=== PATIENT | female | born 1960 | race Caucasian/White ===

== ENCOUNTER → 2023-03-10 | Outpatient (CLI) | payer MEDICARE ==
--- NOTE | 2023-03-10 13:37 | XR ---
EXAMINATION TYPE: XR chest 2V DATE OF EXAM: 03/10/2023 1:32 PM COMPARISON: None TECHNIQUE: XR chest 2V Frontal and lateral views of the chest. CLINICAL INDICATION:Female, 62 years old with history of Z01.818 PRE SURGICAL; FINDINGS: Lungs/Pleura: There is no evidence of pleural effusion, focal consolidation, or pneumothorax. Pulmonary vascularity: Unremarkable. Heart/mediastinum: Cardiomediastinal silhouette is unremarkable. Musculoskeletal: No acute osseous pathology. IMPRESSION: No acute cardiopulmonary disease/process.
[2023-03-10 21:13] LABS: BUN/Creat Ratio 18.25 Ratio (12.00-20.00); Blood Urea Nitrogen 14.6 mg/dL (9.0-27.0); Calcium 9.5 mg/dL (8.7-10.3); Carbon Dioxide 26.1 mmol/L (21.6-31.8); Chloride 102 mmol/L (96-109); Glucose 60 mg/dL (70-110); Potassium 4.3 mmol/L (3.5-5.5); Sodium 141 mmol/L (135-145)
[2023-03-10 21:32] LABS: Basophils # (A) 0.06 X 10*3/uL (0.00-0.10); Basophils % (A) 0.4 %; Eosinophils % (A) 2.4 %; HCT 42.6 % (37.2-46.3); HGB 12.9 d/dL (12.0-15.0); Lymphocytes # (A) 4.73 X 10*3/uL (0.90-5.00); Lymphocytes % (A) 27.8 %; MCH 28.8 pg (27.0-32.0); MCHC 30.3 d/dL (32.0-37.0); MCV 95.1 FL (80.0-97.0); Mean Platelet Volume 10.3 FL (9.5-12.2); Monocytes % (A) 5.9 %; NRBC Per 100 WBC 0 X 10*3/uL (0.00-0.01); Neutrophils # (A) 10.76 X 10*3/uL (1.80-7.70); Neutrophils % (A) 63.1 %; Platelet Count 297 X 10*3/uL (140-440); RBC 4.48 X 10*6/uL (4.10-5.20); WBC 17.02 X 10*3/uL (4.50-10.00)
== END | disposition home or self-care (01) ==
LOC: LABPAT 12:44
PROVIDERS: ATTEND Orthopaedic Surgery
DX: Z01.812 Encounter for preprocedural laboratory examination (principal); I44.4 Left anterior fascicular block; I45.10 Unspecified right bundle-branch block; R94.31 Abnormal electrocardiogram [ECG] [EKG]
CPT/HCPCS: 71046; 80048; 85025; 93005

== ENCOUNTER 2023-03-15 13:38 | Day surgery (SDC) | payer MEDICARE ==
--- NOTE | 2023-03-14 09:40 | P.HPOR ---
History of Present Illness H&P Date: 03/14/23 Chief Complaint: Left ankle pain The patient is a 62-year-old retired female who presents with left ankle pain after an injury 03/03/2023. She tripped over her dog injuring her ankle. Initially she was seen in emergency room and placed in the splint. She's been nonweightbearing since. She denies previous injury. Review of Systems Negative except as in HPI Past Medical History Past Medical History: Atrial Fibrillation, Diabetes Mellitus, Hyperlipidemia, Hypertension, Musculoskeletal Disorder, Thyroid Disorder Additional Past Medical History / Comment(s): told a-fib approx. 1 yr ago-not sure if still has, has never taken blood thinner for, neuropathy lower extremities, dog knocked her down 03-03-23 & fx. left ankle-wearing splint History of Any Multi-Drug Resistant Organisms: None Reported Past Surgical History: Cholecystectomy, Orthopedic Surgery, Tubal Ligation Additional Past Surgical History / Comment(s): cyst removed right wrist, cyst on buttock that kept getting infected, turned into gangrene-had mult. surgeries to debride Past Anesthesia/Blood Transfusion Reactions: Postoperative Nausea & Vomiting (PONV) Additional Past Anesthesia/Blood Transfusion Reaction / Comment(s): PONV only once Smoking Status: Current every day smoker Medications and Allergies Home Medications Medication Instructions Recorded Confirmed Type Acetaminophen Tab [Tylenol] 650 mg PO Q6H PRN 03/11/23 03/11/23 History Gabapentin [Neurontin] 300 mg PO BID 03/11/23 03/11/23 History Ibuprofen [Motrin] 800 mg PO Q6H PRN 03/11/23 03/11/23 History Levothyroxine Sodium [Synthroid] 88 mcg PO DAILY 03/11/23 03/11/23 History Rosuvastatin [Crestor] 10 mg PO DAILY 03/11/23 03/11/23 History Spironolactone [Aldactone] 12.5 mg PO DAILY 03/11/23 03/11/23 History carvediloL [Coreg] 12.5 mg PO BID 03/11/23 03/11/23 History glipiZIDE [Glucotrol] 5 mg PO AC-BID 03/11/23 03/11/23 History lisinopriL [Zestril] 2.5 mg PO DAILY 03/11/23 03/11/23 History metFORMIN HCL [Glucophage] 500 mg PO BID 03/11/23 03/11/23 History Allergies Allergy/AdvReac Type Severity Reaction Status Date / Time No Known Allergies Allergy Verified 03/11/23 12:03 Physical Examination - Ankle & Foot left Ankle appearance: swelling Tenderness with palpation: posteromedial ankle, lateral ankle Ankle pain worse with weight bearing: Yes Ankle pain relieved by non-weight bearing: Yes Results The patient is a well-developed well-nourished female proximal and 5 foot 7, 220 pounds of endomorphic habitus. HEENT exam is nonfocal, neck supple. She has painless passive motion of the left hip. She is nontender about the left knee and proximal fibula. On the left ankle, she's tender over the lateral ankle over the distal fibula. She has limited motion secondary to pain. No mid or forefoot tenderness noted. She does have stocking paresthesias. - Diagnostic results Ankle/Foot x-ray: image reviewed (3 views of the left ankle obtained the office show a displaced lateral malleolar fracture. There is some comminution. 2-3 mm lateral displacement is noted. A small posterior malleolar fractures noted.) Assessment and Plan Assessment: Displaced left lateral malleolar ankle fracturecomminuted [id number] diabetes Plan: I talked with the patient regarding her condition along with treatment options. At this point I recommend proceeding with surgical intervention. We'll plan to proceed with open reduction and internal fixation of the left distal fibular fracture. Potentially perform as an outpatient procedure. Risks and benefits were discussed at length in layman's terms.
[~2023-03-15 13:38] MED LIST: DEXAMETHASONE SOD PHOSPHATE 4 MG/ML 1 ML VIAL IV ONE; HYDROmorphone 0.5 MG/0.5 ML SYRINGE IVP PRN; LACTATED RINGERS 1,000 ML IV SCH; ONDANSETRON 4 MG/2 ML VIAL IVP ONE
[2023-03-15 14:03] VITALS: RESP 16
[2023-03-15 14:08] LABS: Glucose,Whole Blood 110 mg/dL (70-110)
--- NOTE | 2023-03-15 14:52 | P.ANPRN ---
Procedure Note - Anesthesia - Nerve Block Performed Left Popliteal Single Date of Procedure: 03/15/23 Procedure Start Time: 14:38 Procedure Stop Time: 14:46 Location of Patient: PreOp Indication: Acute Post-Operative Pain, Dx/Pain Location, Requested by Surgeon Sedation Type: Sedate with meaningful contact maintained Preparation: Sterile Prep Position: Supine Catheter: None Needle Types: Pajunk Needle Gauge: 21 Ultrasound used to visualize needle placement: Yes Ultrasound used to observe medication spread: Yes Injectate: 0.5% Ropivacaine (see comment for volume) (20cc + 4mg dexamethasone) Blood Aspirated: No Pain Paresthesia on Injection Noted: No Resistance on Injection: Normal Image Stored and Saved: Yes Events: Uneventful and Well Tolerated
[2023-03-15] MEDS ORDERED: fentaNYL (PF) 50 MCG/ML 2 ML AMP ONE (15:29)
[2023-03-15] MEDS ORDERED: LIDOCAINE 2% INJ 20 MG/ML (2 ML VIAL) ONE (15:29)
[2023-03-15] MEDS ORDERED: MIDAZOLAM 2 MG/2 ML VIAL ONE (15:29)
[2023-03-15] MEDS ORDERED: PROPOFOL 10 MG/ML 20 ML VIAL IV ONE (15:29)
--- NOTE | 2023-03-15 17:03 | P.OP ---
Date of Procedure: 03/15/23 Preoperative Diagnosis: Left displaced lateral malleolar ankle fracture Postoperative Diagnosis: Same Procedure(s) Performed: Open reduction and internal fixation left lateral malleolar ankle fracture Implants: Arthrex 6-hole lateral distal fibular plate Anesthesia: zoe LANGFORD Surgeon: José Miguel Mcarthur Strip Picker #1: Austin Garrison Estimated Blood Loss (ml): 10 Pathology: none sent Condition: stable Disposition: PACU Indications for Procedure: The patient's a 62-year-old female who presents after injuring her left ankle approximately 12 days ago with a closed displaced/comminuted left lateral malleolar ankle fracture. A discussion of the risks and benefits of operative intervention was made with patient. She opted to proceed with surgery. Operative risks to include infection, neurovascular injury, blood clots, possibl e development of nonunion/malunion, possible need for hardware removal were discussed. Informed consent was obtained. Operative Findings: as below Description of Procedure: The patient was brought to the operating room, and after induction of general anesthesia the left lower extremity was prepped and draped in normal fashion. The limb was elevated to facilitate exsanguination. The tourniquet was inflated to 250 mmHg. An 8 cm incision was then made along the posterior lateral subcutaneous border of the left distal fibula. Skin was incised sharply. Subcu tissues were divided bluntly. Electrocautery was used for hemostasis. The superficial nerve branch was gently retracted. The fracture site was identified and cleaned of clot and debris. There was significant comminution involving the lateral cortex of the distal fibula. A 6-hole precontoured plate was then placed as a neutralization plate laterally. It was attached proximally with 3.5 mm cortical screws of the appropriate length. Good purchase obtained. Distally 3.0mm cancellus screws were utilized. Again good purchase was obtained. This is done with the aid of fluoroscopy. Final fluoroscopic views to include an AP, mortise, and lateral view showed adequate reduction of the fracture and mandaeism of fibular length. The ankle mortise appeared to be intact as well as the distal syndesmosis. The wound was irrigated normal saline. Subcutaneous tissues reapproximated interrupted 2-0 Vicryl sutures. Skin was repaired with 3-0 subcuticular Prolene suture. Steri-Strips were applied. A sterile dressing was applied in addition to a bulky splint. The tourniquet was deflated with less than 45 minutes total tourniquet time. Patient was awoken from general anesthesia and transferred to the recovery room in good condition. Blood loss was estimated at 10 mL. No complications were incurred. Sponge and needle counts were correct in the case. Austin ESCOBAR assisted during the major component the case to include positioning, exposure, implantation, and closure.
[2023-03-15 17:04] VITALS: TEMP 97.6
[2023-03-15 17:33] VITALS: PULSE 90
[2023-03-15 18:05] VITALS: BP 136/82
--- NOTE | 2023-03-15 19:52 | FL ---
EXAMINATION TYPE: FL guidance operating room, XR ankle limited LT DATE OF EXAM: 03/15/2023 Comparison: Radiograph 03/10/2023 Clinical History: 62-year-old female ORIF LT ANKLE Findings: Intraoperative fluoroscopy during placement of lateral plate and screw fixation distal fibula. There also appears to be a possible fracture of the posterior malleolus. FLUOROSCOPY Fluoroscopy time of 37 seconds was used during left ankle ORIF. 4 image/s document/s the procedure. Total DAP: 0.7814 Gycm2. Impression: Intraoperative fluoroscopy as above.
== END 2023-03-15 18:07 | disposition home or self-care (01) ==
LOC: OR 13:38
PROVIDERS: ATTEND Orthopaedic Surgery
DX: S82.62XA Displaced fracture of lateral malleolus of left fibula, initial encounter for closed fracture (principal); W54.1XXA Struck by dog, initial encounter; I48.91 Unspecified atrial fibrillation; E78.5 Hyperlipidemia, unspecified; I10 Essential (primary) hypertension; E11.40 Type 2 diabetes mellitus with diabetic neuropathy, unspecified; E07.9 Disorder of thyroid, unspecified; E66.9 Obesity, unspecified; Z68.33 Body mass index [BMI] 33.0-33.9, adult; K21.9 Gastro-esophageal reflux disease without esophagitis; Z98.890 Other specified postprocedural states; F17.200 Nicotine dependence, unspecified, uncomplicated; Z79.890 Hormone replacement therapy; Z79.1 Long term (current) use of non-steroidal anti-inflammatories (NSAID); Z79.899 Other long term (current) drug therapy; Z79.84 Long term (current) use of oral hypoglycemic drugs; G89.18 Other acute postprocedural pain
CPT/HCPCS: 64445; 27792; 73600; J0690

== ENCOUNTER → 2023-05-04 | Outpatient (CLI) | payer MEDICARE ==
[2023-05-04 17:14] LABS: HCT 40.8 % (37.2-46.3); HGB 12.9 d/dL (12.0-15.0); MCH 29.7 pg (27.0-32.0); MCHC 31.6 d/dL (32.0-37.0); Mean Platelet Volume 9.3 FL (9.5-12.2); NRBC Per 100 WBC 0 X 10*3/uL (0.00-0.01); Platelet Count 456 X 10*3/uL (140-440); RBC 4.34 X 10*6/uL (4.10-5.20); RDW 13.6 % (11.5-14.5); WBC 15.32 X 10*3/uL (4.50-10.00)
[2023-05-04 17:20] LABS: BUN/Creat Ratio 18.89 Ratio (12.00-20.00); Calcium 9.3 mg/dL (8.7-10.3); Carbon Dioxide 22.1 mmol/L (21.6-31.8); Chloride 105 mmol/L (96-109); Glucose 73 mg/dL (70-110); Potassium 4.9 mmol/L (3.5-5.5); Sodium 141 mmol/L (135-145)
[2023-05-04 17:50] LABS: Basophils # (M) 0.15 X 10*3/uL (0.00-0.10); Eosinophils # (M) 0.31 X 10*3/uL (0.04-0.35); Monocytes # (M) 0.61 X 10*3/uL (0.20-1.00); Neutrophils % (M) 61 %; Nucleated Red Blood Cells 1 /100 WBCS
== END | disposition home or self-care (01) ==
LOC: LABPAT 12:40
PROVIDERS: ATTEND Orthopaedic Surgery
DX: Z01.812 Encounter for preprocedural laboratory examination (principal)
CPT/HCPCS: 36415; 80048; 85025

== ENCOUNTER 2023-05-06 10:51 | Day surgery (SDC) | payer MEDICARE ==
--- NOTE | 2023-05-05 08:09 | P.HPOR ---
History of Present Illness H&P Date: 05/05/23 Chief Complaint: Left ankle pain The patient is a 63-year-old female who underwent ORIF of a comminuted left lateral lower fracture 03/15/2023 presents with persistent drainage and pain. Upon evaluation she was noted to have evidence of a deep infection despite oral antibiotics. Review of Systems Negative except as per HPI, denies fevers or chills. Past Medical History Past Medical History: Atrial Fibrillation, Diabetes Mellitus, Hyperlipidemia, Hypertension, Musculoskeletal Disorder, Thyroid Disorder Additional Past Medical History / Comment(s): told a-fib approx. 1 yr ago-not sure if still has, has never taken blood thinner for, neuropathy lower extremities, dog knocked her down 03-03-23 & fx. left ankle-wearing splint History of Any Multi-Drug Resistant Organisms: None Reported Past Surgical History: Cholecystectomy, Orthopedic Surgery, Tubal Ligation Additional Past Surgical History / Comment(s): cyst removed right wrist, cyst on buttock that kept getting infected, turned into gangrene-had mult. surgeries to debride Past Anesthesia/Blood Transfusion Reactions: Postoperative Nausea & Vomiting (PONV) Additional Past Anesthesia/Blood Transfusion Reaction / Comment(s): PONV only once Smoking Status: Current every day smoker Medications and Allergies Home Medications Medication Instructions Recorded Confirmed Type Acetaminophen Tab [Tylenol] 650 mg PO Q6H PRN 03/11/23 03/11/23 History Gabapentin [Neurontin] 300 mg PO BID 03/11/23 03/11/23 History Ibuprofen [Motrin] 800 mg PO Q6H PRN 03/11/23 03/11/23 History Levothyroxine Sodium [Synthroid] 88 mcg PO DAILY 03/11/23 03/11/23 History Rosuvastatin [Crestor] 10 mg PO DAILY 03/11/23 03/11/23 History Spironolactone [Aldactone] 12.5 mg PO DAILY 03/11/23 03/11/23 History carvediloL [Coreg] 12.5 mg PO BID 03/11/23 03/15/23 History glipiZIDE [Glucotrol] 5 mg PO AC-BID 03/11/23 03/11/23 History lisinopriL [Zestril] 2.5 mg PO DAILY 03/11/23 03/11/23 History metFORMIN HCL [Glucophage] 500 mg PO BID 03/11/23 03/11/23 History HYDROcodone/APAP 7.5-325MG [[place] 1 tab PO Q6HR PRN #28 tab 03/15/23 Rx 7.5-325] Allergies Allergy/AdvReac Type Severity Reaction Status Date / Time No Known Allergies Allergy Verified 03/15/23 13:53 Physical Examination - Ankle & Foot left Ankle appearance: erythema, previous incision (6 x 6 mm wound mid incision with purulent drainage) ROM: dorsiflexion: 0 degrees ROM: plantarflexion: 30 degrees Strength: dorsiflexion: 5/5 Strength: plantarflexion: 5/5 Strength: inversion: 5/5 Strength: eversion: 5/5 Results The patient is a well-developed were nourished female approximately 5 foot 7, 216 pounds of endomorphic habitus. HEENT exam is nonfocal, neck supple. She has painless passive motion of her left hip and knee. On examination of her left ankle, she has moderate lateral swelling. She's tender over the distal fibula. No medial tenderness is noted. Homans is negative. Her distal neurovascular exam shows stocking paresthesias bilaterally. - Diagnostic results Ankle/Foot x-ray: image reviewed (3 views of the left ankle obtained in the office show a comminuted distal fibular fracture in reasonable alignment. The mortise appears to be intact. There is some backing out of the distal screws in the lateral plate.) Assessment and Plan Assessment: Status post ORIF left comminuted lateral malleolar ankle fracture Deep infection left lateral ankle Diabetes Plan: I talked with the patient and her at length regarding her condition along with treatment options. At this point I recommend proceeding with incision and drainage/irrigation and debridement of left lateral ankle with hardware removal/obtain cultures. Risks and benefits were discussed at length in layman's terms. We will likely admit the patient to hospital, and consult infectious disease for antibiotic treatment.
[~2023-05-06 10:51] MED LIST changes: -LACTATED RINGERS 1,000 ML IV SCH; +MIDAZOLAM 2 MG/2 ML VIAL IV PRN; +SCOPOLAMINE 1 MG/72 HR PATCH TRANSDERM ONE
[2023-05-06] MEDS: LACTATED RINGERS 1,000 ML IV SCH (11:34)
[2023-05-06 11:46] LABS: Glucose,Whole Blood 70 mg/dL (70-110)
[2023-05-06] MEDS ORDERED: PROPOFOL 10 MG/ML 20 ML VIAL IV ONE (12:51)
[2023-05-06] MEDS ORDERED: LIDOCAINE 2% INJ 20 MG/ML (2 ML VIAL) ONE (12:51)
[2023-05-06] MEDS ORDERED: SUCCINYLCHOLINE CHLORIDE 200 MG/10 ML VIAL IV ONE (12:51)
[2023-05-06] MEDS ORDERED: PHENYLEPHRINE-0.9% NACL SYG 1,000 MCG/10 ML SYRINGE ONE (12:51)
[2023-05-06] MEDS ORDERED: MIDAZOLAM 2 MG/2 ML VIAL ONE (12:51)
[2023-05-06] MEDS ORDERED: fentaNYL (PF) 50 MCG/ML 2 ML AMP ONE (12:51)
[2023-05-06] MEDS ORDERED: ceFAZolin 1,000 MG in SODIUM CHLORIDE 0.9% 1,000 ML IRRIGATION ONE (13:20)
[2023-05-06] MEDS ORDERED: ceFAZolin 3,000 MG in SODIUM CHLORIDE 0.9% IRRIGATIO 3,000 ML IRRIGATION ONE (13:27)
--- NOTE | 2023-05-06 13:44 | P.OP ---
Date of Procedure: 05/06/23 Preoperative Diagnosis: Deep infection left lateral ankle with retained hardware Postoperative Diagnosis: Same Procedure(s) Performed: Irrigation and debridement/incision and drainage left lateral ankle with plate/screw removal Anesthesia: PRIMITIVO Surgeon: José Miguel Mcarthur Shared Services Representative #1: Austin Garrison Estimated Blood Loss (ml): 10 Pathology: other (Deep cultures/Gram stain) Condition: stable Disposition: PACU Indications for Procedure: The patient is a 63-year-old female who presents after undergoing ORIF of a left lateral ankle fracture with drainage from her lateral incision. Upon clinical evaluation she is noted have a deep infection. A discussion of the risks and benefits of operative intervention was made with the patient. She opted to proceed with surgery. Operative risks to include persistence of infection and possible need for subsequent procedures was discussed. Informed consent was obtained. Operative Findings: As below Description of Procedure: The patient was brought to the operating room, and after induction of general anesthesia the left lower extremity was prepped and draped in normal fashion. The tourniquet was inflated to 270 mm martina. The previous lateral incision was u tilized extending approximate 7 cm. Skin was incised sharply. The central wound dehiscence with purulence was noted. Blunt dissection was made down to the level of the distal fibula. There was moderate purulence. Deep cultures were obtained. The plate and multiple screws were then removed. The wound was irrigated copiously with 4 L of fluid. The wound edges were sharply debrided with a scalpel down to the level of the distal fibula/bone. Necrotic appearing tissue was excised. The wound edges were loosely reapproximated with simple 3-0 nylon suture. A sterile dressing was applied. The tourniquet was deflated with less than 30 minutes total tourniquet time. Blood loss was estimated at 10 mL. case were incurred. Sponge and needle counts were correct in the case. The patient was awoken from general anesthesia and transferred to the recovery room in good condition.
[2023-05-06] MEDS ORDERED: SENNOSIDES-DOCUSATE SODIUM 1 EACH TAB PO PRN (13:48)
[2023-05-06] MEDS ORDERED: hydrOXYzine pamoate 25 MG CAP PO PRN (13:48)
[2023-05-06] MEDS ORDERED: HYDROmorphone 0.5 MG/0.5 ML SYRINGE IVP PRN ×2 (13:48)
[2023-05-06 14:30] LABS: Glucose,Whole Blood 61 mg/dL (70-110)
[2023-05-06 15:19] LABS: Glucose,Whole Blood 116 mg/dL (70-110)
[2023-05-06] MEDS ORDERED: LACTATED RINGERS 1,000 ML IV ONE (16:01)
[2023-05-06] MEDS ORDERED: ACETAMINOPHEN TAB 325 MG TAB PO PRN (16:42)
[2023-05-06] MEDS ORDERED: DEXTROSE 50% SYRINGE 50 ML IVP PRN ×4 (16:43→17:18)
[2023-05-06] MEDS ORDERED: VANCOMYCIN IV PER PHARMACY 1 EACH MISC MISCELLANE PRN (16:43)
[2023-05-06] MEDS: GABAPENTIN 300 MG CAP PO SCH ×2 (16:47→21:18)
[2023-05-06] MEDS: HYDROcodone/APAP 7.5-325MG 1 EACH TAB PO PRN ×2 (16:49→23:10)
[2023-05-06] MEDS ORDERED: VANCOMYCIN 1,500 MG in SODIUM CHLORIDE 0.9% 500 ML 500 ML IVPB ONE (17:00)
[2023-05-06 17:04] LABS: Glucose,Whole Blood 182 mg/dL (70-110)
[2023-05-06 17:48] LABS: Basophils % (A) 0 %; Eosinophils # (A) 0.1 k/uL (0-0.7); Eosinophils % (A) 1 %; HCT 38.9 % (34.0-46.0); HGB 12.2 gm/dL (11.4-16.0); Hypochromasia Moderate; Lymphocytes # (A) 2.2 k/uL (1.0-4.8); Lymphocytes % (A) 14 %; MCH 30.3 pg (25.0-35.0); MCHC 31.3 g/dL (31.0-37.0); MCV 96.6 fL (80.0-100.0); Mean Platelet Volume 7.5; Monocytes # (A) 0.4 k/uL (0-1.0); Monocytes % (A) 2 %; Neutrophils # (A) 12.9 k/uL (1.3-7.7); Neutrophils % (A) 82 %; Platelet Count 417 k/uL (150-450); RBC 4.03 m/uL (3.80-5.40); RDW 13.3 % (11.5-15.5); WBC 15.6 k/uL (3.8-10.6)
[2023-05-06 18:05] LABS: African American GFR (CKD) 60 (>60 ml/min/1.73 sqM); C Reactive Protein 2.3 mg/dL (<1.0); Non-African American GFR(CKD) 52 (>60 ml/min/1.73 sqM)
[2023-05-06 20:12] LABS: Glucose,Whole Blood 282 mg/dL (70-110)
[2023-05-06] MEDS: INSULIN ASPART (NovoLOG) 100 UNIT/ML VIAL SQ SCH (21:17)
[2023-05-06] MEDS: carvediloL 12.5 MG TAB PO SCH (21:23)
--- NOTE | 2023-05-06 22:19 | P.CONS ---
History of Present Illness - Reason for Consult Consult date: 05/06/23 - History of Present Illness Patient is a 63-year-old female with a past medical history negative for diabetes mellitus hypertension hyperlipidemia atrial fibrillation who recently did have a left lateral ankle fracture status post repair on 03/15/2023 patient seem to have done well postsurgery however about a week ago patient started having a purulent drainage from the lateral aspect of the left ankle area patient denies any history of any trauma patient has been complaining of pain to the left lateral ankle wound area to be sharp 7-8 out of 10 no radiation with associated swelling redness and purulent drainage patient did have some chills but no fever patient mention she has been treated with oral Keflex without any improvement patient subsequently was electively admitted to the hospital she was taken to the OR and the patient s/p I&D of the incision and drainage of the left ankle abscess and removal of the plate and screw deep culture was obtained patient was started on cefazolin infectious was consulted for management of antibiotic therapy patient on presentation the hospital has been afebrile did have a white count of 15.6 with a left shift creatinine is 1.14 local cultures currently pending Past Medical History Past Medical History: Atrial Fibrillation, Diabetes Mellitus, Hyperlipidemia, Hypertension, Musculoskeletal Disorder, Thyroid Disorder Additional Past Medical History / Comment(s): told a-fib approx. 1 yr ago-not sure if still has, has never taken blood thinner for, neuropathy lower extremities, dog knocked her down 03-03-23 & fx. left ankle-wearing splint History of Any Multi-Drug Resistant Organisms: None Reported Past Surgical History: Cholecystectomy, Orthopedic Surgery, Tonsillectomy, Tubal Ligation Additional Past Surgical History / Comment(s): cyst removed right wrist, cyst on buttock that kept getting infected, turned into gangrene-had mult. surgeries to debride lft ankle fx repair Past Anesthesia/Blood Transfusion Reactions: Postoperative Nausea & Vomiting (PONV) Additional Past Anesthesia/Blood Transfusion Reaction / Comm: PONV only once Smoking Status: Current every day smoker - Past Family History Mother Family Medical History: Cancer Additional Family Medical History / Comment(s): colon Father Family Medical History: Cancer Additional Family Medical History / Comment(s): colon Medications and Allergies Home Medications Medication Instructions Recorded Confirmed Type Acetaminophen Tab [Tylenol] 650 mg PO Q6H PRN 03/11/23 05/06/23 History Gabapentin [Neurontin] 300 mg PO TID 03/11/23 05/06/23 History Levothyroxine Sodium [Synthroid] 88 mcg PO DAILY 03/11/23 05/06/23 History Rosuvastatin [Crestor] 10 mg PO DAILY 03/11/23 05/06/23 History Spironolactone [Aldactone] 12.5 mg PO DAILY 03/11/23 05/06/23 History carvediloL [Coreg] 12.5 mg PO BID 03/11/23 05/06/23 History glipiZIDE [Glucotrol] 5 mg PO AC-BID 03/11/23 05/06/23 History lisinopriL [Zestril] 2.5 mg PO DAILY 03/11/23 05/06/23 History metFORMIN HCL [Glucophage] 500 mg PO BID 03/11/23 05/06/23 History HYDROcodone/APAP 7.5-325MG [[place] 1 tab PO Q8H PRN 05/05/23 05/06/23 History 7.5-325] Cephalexin [Keflex] 500 mg PO Q6HR 05/06/23 05/06/23 History Allergies Allergy/AdvReac Type Severity Reaction Status Date / Time No Known Allergies Allergy Verified 05/06/23 11:14 Physical Exam Vitals: Vital Signs Temp Pulse Resp BP Pulse Ox 05/06/23 16:19 97.9 F 89 18 132/78 96 05/06/23 15:55 78 18 127/67 98 05/06/23 15:19 88 18 125/60 98 05/06/23 14:48 84 16 128/64 97 05/06/23 14:32 85 16 131/56 97 05/06/23 14:19 80 16 111/55 98 05/06/23 14:03 87 16 112/58 99 05/06/23 13:49 87 16 111/58 97 05/06/23 11:23 97.0 F L 95 20 135/69 99 Intake and Output 05/06/23 05/06/23 05/06/23 06:59 14:59 22:59 Intake Total 902 Output Total 5 Balance 897 Intake: IV 902 Output: Estimated Blood Loss 5 Results CBC & Chem 7: 05/06/23 17:16 05/06/23 17:16 Labs: Abnormal Lab Results - Last 24 Hours (Table) 05/06/23 05/06/23 Range/Units 14:26 15:17 POC Glucose (mg/dL) 61 L 116 H (70-110) mg/dL Assessment and Plan Plan: 1patient present to hospital with the left lateral ankle purulent drainage in this patient who do have history of ankle fracture s/p ORIF now with concern for a deep infection in this patient s/p I&D and removal of the plate and screw we will need to cover for the resistant gram-positive to the likely pathogen as the patient has failed outpatient oral Keflex therapy 2-we will obtain blood cultures and check a CRP and sed rate 3-discontinue cefazolin 4-start the patient on vancomycin pharmacy to dose and cefepime while waiting for the culture to be finalized 5-patient will likely need IV antibiotic on discharge We will follow on clinical condition and cultures to further adjust medication if needed Thank you for this consultation we will follow the patient along with you Dictation was produced using [employer] dictation software. please excuse any grammatical, word or spelling errors. Time with Patient: Greater than 30
--- NOTE | 2023-05-06 22:31 | CONS ---
CONSULTATION REASON FOR CONSULTATION: Advice regarding diabetes and other medical issues requested by orthopedist. HISTORY OF PRESENT ILLNESS: This is a 63-year-old woman with a past medical history of multiple medical problems, underwent irrigation and debridement and drainage of the left lateral ankle for a deep infection of the left lateral ankle with retained hardware. The blood sugars are fluctuating and 1 of the values are actually 61. The patient is also taking multiple p.o. oral antidiabetic medications. There is no history of any fever, rigors or chills. PAST MEDICAL HISTORY: Reviewed include atrial fibrillation, diabetes mellitus. Rest of the history and rest of the chart are also reviewed. HOME MEDICATIONS: Reviewed include Keflex, dose and rest of medications reviewed. ALLERGIES: None. FAMILY HISTORY: History of colon cancer. SOCIAL HISTORY: History of smoking on a daily basis. REVIEW OF SYSTEMS: Fourteen-point review is negative except as mentioned earlier. PHYSICAL EXAMINATION: VITAL SIGNS: Pulse is 89, blood pressure n, respirations 18. HEENT: Conjunctivae normal. NECK: No jugular venous distention. CARDIOVASCULAR: S1 and S2. at the bases. ABDOMEN: Soft and nontender. LEGS: Status post surgery. LABORATORY DATA: Reviewed. Accu-Cheks noted. Sugars are 182. ASSESSMENT: 1. Status post irrigation and debridement and drainage of the left lateral ankle for deep infection of the ankle with retained hardware. 2. Diabetes mellitus, type 2, fluctuating with hypoglycemia. 3. Atrial fibrillation. 4. Hypertension. 5. Hyperlipidemia. 6. Multiple medical issues. RECOMMENDATIONS: This is a 63-year-old woman who presented with multiple complex medical issues, we will monitor the patient closely. I would recommend Accu-Cheks a.c. and sliding scale at this time and if the blood sugars are improving and p.o. medication may be started. Infectious Disease evaluation has been sought and Maxipime has been initiated. We will follow the patient closely with you. Thank you for the consult. MMODL / IJN: [id number] / ADIA
[2023-05-07] MEDS: CEFEPIME 2 GM in SODIUM CHLORIDE 0.9% 100 ML IVPB SCH ×3 (01:22→17:05)
[2023-05-07] MEDS: LEVOTHYROXINE 88 MCG TAB PO SCH (06:01)
[2023-05-07] MEDS: HYDROcodone/APAP 7.5-325MG 1 EACH TAB PO PRN ×3 (06:01→18:51)
[2023-05-07] MEDS: carvediloL 12.5 MG TAB PO SCH ×2 (07:07→17:05)
[2023-05-07 07:11] LABS: African American GFR (CKD) 81 (>60 ml/min/1.73 sqM); Non-African American GFR(CKD) 71 (>60 ml/min/1.73 sqM)
[2023-05-07 07:32] LABS: Glucose,Whole Blood 112 mg/dL (70-110)
[2023-05-07] MEDS: INSULIN ASPART (NovoLOG) 100 UNIT/ML VIAL SQ SCH ×4 (07:51→22:11)
--- NOTE | 2023-05-07 08:53 | P.PN ---
Subjective Progress Note Date: 05/07/23 Principal diagnosis: Deep infection left lateral ankle with retained hardware Patient stable at bedside this morning lying in the semi-, position. Garrison bandages present over the left lower extremity. Patient says her pain is well- controlled with medication. Patient is hoping to get a new Cam Walker boot today. Patient is discharged not put any weight on the left lower extremity. Patient has been using a walker for now. Patient awaiting a knee scooter as well. warranty manager working on this. Patient denies any other changes at this time. Patient denies numbness/tingling. Patient denies chest pain, fever, shortness breath, nausea, vomiting, change in vision, loss of bowel/bladder control. Objective - Vital Signs Vital signs: Vital Signs Temp 97.5 F L 05/07/23 07:09 Pulse 75 05/07/23 07:09 Resp 19 05/07/23 07:09 BP 106/64 05/07/23 07:09 Pulse Ox 99 05/07/23 07:09 FiO2 Intake & Output 05/06/23 05/07/23 05/07/23 18:59 06:59 18:59 Intake Total 902 Output Total 5 Balance 897 Weight 99.79 kg Intake: IV 902 Output: Estimated Blood Loss 5 Other: Voiding Method Toilet # Voids 1 4 - Exam Left ankle: garrison dressing is present over the left lower extremity at this time. Surgery was performed under 24 hours ago and we'll maintain the dressing in place at this time. Plan for dressing change and incision check tomorrow morning once dressing is removed. It appears that there is some pedal edema in the left lower extremity. DP pulse intact bilaterally. Cap refill under 3 seconds in digits upper extremities.. There is minimal soft tissue swelling and ecchymosis surrounding the medial and lateral aspects of the incision. Calf is soft, no tenderness with palpation. Dorsi and plantarflexion is limited in the left ankle. EHL, FHL are intact. Sensory exam to light touch throughout the extremity is intact, dorsal pedis pulses 2+. - Labs CBC & Chem 7: 05/06/23 17:16 05/07/23 06:06 Labs: Abnormal Lab Results - Last 24 Hours (Table) 05/06/23 05/06/23 05/06/23 Range/Units 14:26 15:17 17:03 WBC (3.8-10.6) k/uL Neutrophils # (1.3-7.7) k/uL ESR (0-20) mm/hr Creatinine (0.52-1.04) mg/dL POC Glucose (mg/dL) 61 L 116 H 182 H (70-110) mg/dL Hemoglobin A1c (<=6.0) % C-Reactive Protein (<1.0) mg/dL 05/06/23 05/06/23 05/06/23 Range/Units 17:16 17:16 17:16 WBC 15.6 H (3.8-10.6) k/uL Neutrophils # 12.9 H (1.3-7.7) k/uL ESR 43 H (0-20) mm/hr Creatinine (0.52-1.04) mg/dL POC Glucose (mg/dL) (70-110) mg/dL Hemoglobin A1c 6.9 H (<=6.0) % C-Reactive Protein (<1.0) mg/dL 05/06/23 05/06/23 05/07/23 Range/Units 17:16 20:11 07:29 WBC (3.8-10.6) k/uL Neutrophils # (1.3-7.7) k/uL ESR (0-20) mm/hr Creatinine 1.14 H (0.52-1.04) mg/dL POC Glucose (mg/dL) 282 H 112 H (70-110) mg/dL Hemoglobin A1c (<=6.0) % C-Reactive Protein 2.3 H (<1.0) mg/dL Microbiology - Last 24 Hours (Table) 05/06/23 13:35 Gram Stain - Preliminary Ankle - Left Assessment and Plan Assessment: Deep infection left lateral ankle with retained hardware -Postoperative day 1 status post Irrigation and debridement/incision and drainage left lateral ankle with plate/screw removal Plan: 1. Deep infection left lateral ankle with retained hardware - surgery performed yesterday, 05/06/2023 - Irrigation and debridement/incision and drainage left lateral ankle with plate/screw removal. We'll maintain a stressing in place at this time. Plan for dressing change tomorrow morning and incision check. Prescription for a Cam Walker boot and knee scooter were placed in patient's chart yesterday after surgery. warranty manager working on this currently. Patient to be nonweightbearing left lower extremity. Pain medication as needed. Medicine and infectious disease are following with antibiotics. We will continue to follow patient during her stay in hospital. 2. Appreciate medical management and ID management 3. Pain management - [place]; gabapentin 4. GI prophylaxis - senna 5. DVT prophylaxis - aspirin 6. PT/OT - nonweightbearing left lower extremity 7. Encourage incentive spirometer use 8. Discharge planning - pending Time with Patient: Less than 30
[2023-05-07] MEDS: ATORVASTATIN 20 MG TAB PO SCH (09:03)
[2023-05-07] MEDS: ASPIRIN 325 MG TAB PO SCH (09:03)
[2023-05-07] MEDS: GABAPENTIN 300 MG CAP PO SCH ×3 (09:03→22:11)
[2023-05-07] MEDS: SPIRONOLACTONE 25 MG TAB PO SCH (09:03)
[2023-05-07] MEDS: LACTATED RINGERS 1,000 ML IV SCH (09:11)
[2023-05-07 11:55] LABS: Glucose,Whole Blood 114 mg/dL (70-110)
--- NOTE | 2023-05-07 13:13 | PN ---
PROGRESS NOTE DATE OF SERVICE: 05/07/2023 SUBJECTIVE: This 63-year-old woman who was admitted after irrigation and debridement of the left lateral ankle is being closely monitored. No chest pain. No palpitations. No fever. Infectious disease is also following the patient. OBJECTIVE: VITAL SIGNS: Pulse is 75, blood pressure 106/64, respirations 19. CHEST: Clear to auscultation. CARDIOVASCULAR: S1, S2. ABDOMEN: Soft. EXTREMITIES: Left ankle status post surgery. LABORATORY DATA: Accu-Cheks 114. CRP is 2.3. ASSESSMENT: 1. Status post irrigation, debridement, and drainage of the left lateral ankle for deep infection of the ankle and retained hardware. 2. Diabetes mellitus, type 2, fluctuating with hypoglycemia, better controlled now. 3. Atrial fibrillation. 4. Hypertension. 5. Hyperlipidemia. 6. Multiple medical issues. RECOMMENDATIONS: I recommend to continue current management and continue symptomatic treatment. Otherwise, follow the cultures. I would also recommend checking hemoglobin A1c and continue to monitor. Prognosis guarded. Further recommendations to follow. MMODL / IJN: [id number] /
--- NOTE | 2023-05-07 13:15 | P.PN ---
Progress Note - Text Progress Note Date: 05/07/23 Diagnosis: Left lateral malleolus fracture ICD10 - S82.62XA Patient needs knee scooter due to left lateral malleolus fracture. Patient needs to be non-weightbearing and having a knee scooter is the best way for patient to be able to do this safely. Patient can safely use the ordered equipment. Scooter will assist patient ADLs at home.
[2023-05-07] MEDS: VANCOMYCIN 1,500 MG in SODIUM CHLORIDE 0.9% 500 ML 500 ML IVPB SCH (14:46)
[2023-05-07 17:34] LABS: Glucose,Whole Blood 147 mg/dL (70-110)
[2023-05-07 20:15] LABS: Glucose,Whole Blood 184 mg/dL (70-110)
[2023-05-07] MEDS ORDERED: VANCOMYCIN 1,500 MG in SODIUM CHLORIDE 0.9% 500 ML 500 ML IVPB SCH (22:00)
[2023-05-08] MEDS: CEFEPIME 2 GM in SODIUM CHLORIDE 0.9% 100 ML IVPB SCH ×4 (01:03→23:25)
[2023-05-08] MEDS: HYDROcodone/APAP 7.5-325MG 1 EACH TAB PO PRN ×4 (01:16→22:00)
[2023-05-08 03:17] LABS: Glucose,Whole Blood 97 mg/dL (70-110)
[2023-05-08 03:20] VITALS: RESP 18
[2023-05-08] MEDS: LEVOTHYROXINE 88 MCG TAB PO SCH (06:11)
[2023-05-08] MEDS: VANCOMYCIN 1,500 MG in SODIUM CHLORIDE 0.9% 500 ML 500 ML IVPB SCH ×2 (06:11→21:09)
[2023-05-08] MEDS: LACTATED RINGERS 1,000 ML IV SCH ×2 (06:14→23:08)
[2023-05-08 07:39] LABS: Glucose,Whole Blood 99 mg/dL (70-110)
[2023-05-08] MEDS: INSULIN ASPART (NovoLOG) 100 UNIT/ML VIAL SQ SCH ×4 (09:03→21:09)
[2023-05-08] MEDS: SPIRONOLACTONE 25 MG TAB PO SCH (09:10)
[2023-05-08] MEDS: carvediloL 12.5 MG TAB PO SCH ×2 (09:10→17:43)
[2023-05-08] MEDS: ATORVASTATIN 20 MG TAB PO SCH (09:10)
[2023-05-08] MEDS: ASPIRIN 325 MG TAB PO SCH (09:10)
[2023-05-08] MEDS: GABAPENTIN 300 MG CAP PO SCH ×3 (09:10→21:09)
--- NOTE | 2023-05-08 10:15 | P.PN ---
Subjective Progress Note Date: 05/08/23 Principal diagnosis: Deep infection left lateral ankle with retained hardware Patient was seen at bedside this morning with dressing present over the left ankle. Patient says she received new cam walker boot yesterday as well as a knee scooter. Patient says she has used knee scooter already. Patient says she has urinated since surgery. Patient says she has not had bowel movement yet, however, patient says she has been passing gas. Patient denies numbness/tingling down the foot. Patient denies chest pain, fever, shortness of breath, nausea, vomiting, change in vision, loss of bowel/bladder control. Objective - Vital Signs Vital signs: Vital Signs Temp 97.6 F 05/08/23 07:30 Pulse 73 05/08/23 07:30 Resp 18 05/08/23 07:30 BP 132/64 05/08/23 07:30 Pulse Ox 99 05/08/23 07:30 FiO2 Intake & Output 05/07/23 05/08/23 05/08/23 18:59 06:59 18:59 Other: Voiding Method Toilet # Voids 1 1 - Exam Left ankle: garrison dressing is present over the left lower extremity at this time. Dressing taken down at bedside. There is some serosanguineous drainage actively. Sutures appear to be in good placement and well aligned at this time.new Dressing placed over incision. It appears that there is some pedal edema in the left lower extremity. DP pulse intact bilaterally. Cap refill under 3 seconds in digits upper extremities.. There is minimal soft tissue swelling and ecchymosis surrounding the medial and lateral aspects of the incision. Calf is soft, no tenderness with palpation. Dorsi and plantarflexion is limited in the left ankle. EHL, FHL are intact. Sensory exam to light touch throughout the extremity is intact, dorsal pedis pulses 2+. - Labs CBC & Chem 7: 05/06/23 17:16 05/07/23 06:06 Labs: Abnormal Lab Results - Last 24 Hours (Table) 05/07/23 05/07/23 05/07/23 Range/Units 06:06 11:52 17:29 POC Glucose (mg/dL) 114 H 147 H (70-110) mg/dL Hemoglobin A1c 6.9 H (<=6.0) % 05/07/23 Range/Units 20:13 POC Glucose (mg/dL) 184 H (70-110) mg/dL Hemoglobin A1c (<=6.0) % Microbiology - Last 24 Hours (Table) 05/06/23 13:35 Gram Stain - Preliminary Ankle - Left Wound Culture - Preliminary Presumptive Staph aureus 05/06/23 13:35 Wound Culture - Preliminary Ankle - Left Assessment and Plan Assessment: Deep infection left lateral ankle with retained hardware -Postoperative day 2 status post Irrigation and debridement/incision and drainage left lateral ankle with plate/screw removal Plan: 1. Deep infection left lateral ankle with retained hardware - surgery performed 05/06/2023 - Irrigation and debridement/incision and drainage left lateral ankle with plate/screw removal. Dressing changed at bedside this morning. There is some serosanguineous drainage at this time. 4 x 4's ABDs Kerlix and Garrison bandage wrapped around ankle. Cam Walker boot and knee scooter with patient at bedside. Patient to be nonweightbearing left lower extremity. Pain medication as needed. Medicine and infectious disease are following with antibiotics. We will continue to follow patient during her stay in hospital. Discharge likely tomorrow, 05/09/2023 pending final cultures 2. Appreciate medical management and ID management 3. Pain management - [place]; gabapentin 4. GI prophylaxis - senna 5. DVT prophylaxis - aspirin 6. PT/OT - nonweightbearing left lower extremity 7. Encourage incentive spirometer use 8. Discharge planning - Discharge likely tomorrow, 05/09/2023 pending final cultures Time with Patient: Less than 30
[2023-05-08 10:45] LABS: HCT 35.9 % (37.2-46.3); HGB 11.1 d/dL (12.0-15.0); MCH 29.8 pg (27.0-32.0); MCHC 30.9 d/dL (32.0-37.0); MCV 96.2 FL (80.0-97.0); Mean Platelet Volume 9.1 FL (9.5-12.2); NRBC Per 100 WBC 0 X 10*3/uL (0.00-0.01); Platelet Count 417 X 10*3/uL (140-440); RBC 3.73 X 10*6/uL (4.10-5.20); RDW 13.5 % (11.5-14.5); WBC 13.05 X 10*3/uL (4.50-10.00)
--- NOTE | 2023-05-08 10:55 | P.PN ---
Subjective Progress Note Date: 05/07/23 Principal diagnosis: Left ankle infection Patient is a 63-year-old female with a recent left ankle fracture status post ORIF and subsequent admitted to the hospital with drainage wound infection failing outpatient oral cephalexin therapy in this patient who is status post I&D removal of the hardware and deep culture. On today's evaluation that is 05/07/2023 patient denies having any fever or any chills, the patient is breathing comfortably on room air no chest pain shortness of breath or cough no abdominal pain pain to the left ankle is currently controlled Objective - Vital Signs Vital signs: Vital Signs Temp 97.5 F L 05/07/23 07:09 Pulse 75 05/07/23 07:09 Resp 19 05/07/23 07:09 BP 106/64 05/07/23 07:09 Pulse Ox 99 05/07/23 07:09 FiO2 Intake & Output 05/06/23 05/07/23 05/07/23 18:59 06:59 18:59 Intake Total 902 Output Total 5 Balance 897 Weight 99.79 kg Intake: IV 902 Output: Estimated Blood Loss 5 Other: Voiding Method Toilet # Voids 1 4 1 - Exam GENERAL DESCRIPTION: Middle-aged female lying in bed in no distress RESPIRATORY SYSTEM: Unlabored breathing , decreased breath sounds at bases HEART: S1 S2 regular rate and rhythm ,no loud murmurs ABDOMEN: Soft , no tenderness EXTREMITIES: Left ankle is dressed no drainage on her dressing - Labs CBC & Chem 7: 05/08/23 05:23 05/07/23 06:06 Labs: Abnormal Lab Results - Last 24 Hours (Table) 05/06/23 05/06/23 05/06/23 Range/Units 14:26 15:17 17:03 WBC (3.8-10.6) k/uL Neutrophils # (1.3-7.7) k/uL ESR (0-20) mm/hr Creatinine (0.52-1.04) mg/dL POC Glucose (mg/dL) 61 L 116 H 182 H (70-110) mg/dL Hemoglobin A1c (<=6.0) % C-Reactive Protein (<1.0) mg/dL 05/06/23 05/06/23 05/06/23 Range/Units 17:16 17:16 17:16 WBC 15.6 H (3.8-10.6) k/uL Neutrophils # 12.9 H (1.3-7.7) k/uL ESR 43 H (0-20) mm/hr Creatinine (0.52-1.04) mg/dL POC Glucose (mg/dL) (70-110) mg/dL Hemoglobin A1c 6.9 H (<=6.0) % C-Reactive Protein (<1.0) mg/dL 05/06/23 05/06/23 05/07/23 Range/Units 17:16 20:11 07:29 WBC (3.8-10.6) k/uL Neutrophils # (1.3-7.7) k/uL ESR (0-20) mm/hr Creatinine 1.14 H (0.52-1.04) mg/dL POC Glucose (mg/dL) 282 H 112 H (70-110) mg/dL Hemoglobin A1c (<=6.0) % C-Reactive Protein 2.3 H (<1.0) mg/dL Microbiology - Last 24 Hours (Table) 05/06/23 13:35 Gram Stain - Preliminary Ankle - Left Assessment and Plan (1) Osteolysis, left ankle and foot Current Visit: Yes Status: Acute Code(s): M89.572 - OSTEOLYSIS, LEFT ANKLE AND FOOT SNOMED Code(s): 987259703 Plan: 1patient present to hospital with the left lateral ankle purulent drainage in this patient who do have history of ankle fracture s/p ORIF now with concern for a deep infection in this patient s/p I&D and removal of the plate and screw we will need to cover for the resistant gram-positive to the likely pathogen as the patient has failed outpatient oral Keflex therapy 2blood and local cultures are currently pending, patient did have a sed rate of 43 CRP of 2.3. 3we will keep the patient on vancomycin and cefepime while waiting for the culture to finalize Dictation was produced using [employer] dictation software. please excuse any grammatical, word or spelling errors. Time with Patient: Less than 30
[2023-05-08 11:37] LABS: Basophils # (M) 0 X 10*3/uL (0.00-0.10)
[2023-05-08 11:49] LABS: Glucose,Whole Blood 115 mg/dL (70-110)
[2023-05-08 11:51] LABS: BUN/Creat Ratio 17.67 Ratio (12.00-20.00); Blood Urea Nitrogen 15.9 mg/dL (9.0-27.0); Calcium 8.5 mg/dL (8.7-10.3); Carbon Dioxide 23.3 mmol/L (21.6-31.8); Chloride 107 mmol/L (96-109); Glucose 94 mg/dL (70-110); Potassium 4.8 mmol/L (3.5-5.5); Sodium 139 mmol/L (135-145)
[2023-05-08 12:04] LABS: Eosinophils # (M) 0.39 X 10*3/uL (0.04-0.35); Monocytes # (M) 0.26 X 10*3/uL (0.20-1.00); Neutrophils # (M) 6.39 X 10*3/uL (1.80-7.70); Neutrophils % (M) 49 %; RBC Morphology Normal (Normal)
[2023-05-08 17:04] LABS: Glucose,Whole Blood 132 mg/dL (70-110)
--- NOTE | 2023-05-08 17:14 | P.PN ---
Subjective Progress Note Date: 05/08/23 Principal diagnosis: Left ankle infection Patient is a 63-year-old female with a recent left ankle fracture status post ORIF and subsequent admitted to the hospital with drainage wound infection failing outpatient oral cephalexin therapy in this patient who is status post I&D removal of the hardware and deep culture. On today's evaluation that is 05/08/2023 patient remains to be afebrile, the patient is breathing comfortably on room air , the patient denies chest pain shortness of breath or cough no abdominal pain pain to the left ankle is currently controlled. Patient did have white count of 13.05, creatinine 0.9 local cultures currently growing Staphylococcus aureus sensitivities pending blood culture so far negative Objective - Vital Signs Vital signs: Vital Signs Temp 97.5 F L 05/08/23 11:38 Pulse 83 05/08/23 11:38 Resp 18 05/08/23 11:38 BP 136/82 05/08/23 11:38 Pulse Ox 95 05/08/23 11:38 FiO2 Intake & Output 05/07/23 05/08/23 05/08/23 18:59 06:59 18:59 Other: Voiding Method Toilet # Voids 1 1 5 - Exam GENERAL DESCRIPTION: Middle-aged female lying in bed in no distress RESPIRATORY SYSTEM: Unlabored breathing , decreased breath sounds at bases HEART: S1 S2 regular rate and rhythm ,no loud murmurs ABDOMEN: Soft , no tenderness EXTREMITIES: Left ankle is dressed no drainage on her dressing - Labs CBC & Chem 7: 05/08/23 05:23 05/08/23 05:23 Labs: Abnormal Lab Results - Last 24 Hours (Table) 05/07/23 05/07/23 05/07/23 Range/Units 06:06 17:29 20:13 WBC (4.50-10.00) X 10*3/uL RBC (4.10-5.20) X 10*6/uL Hgb (12.0-15.0) d/dL Hct (37.2-46.3) % MCHC (32.0-37.0) d/dL MPV (9.5-12.2) FL Lymphocytes # (Manual) (0.90-5.00) X 10*3/uL Eosinophils # (Manual) (0.04-0.35) X 10*3/uL POC Glucose (mg/dL) 147 H 184 H (70-110) mg/dL Hemoglobin A1c 6.9 H (<=6.0) % Calcium (8.7-10.3) mg/dL 05/08/23 05/08/23 05/08/23 Range/Units 05:23 05:23 11:42 WBC 13.05 H (4.50-10.00) X 10*3/uL RBC 3.73 L (4.10-5.20) X 10*6/uL Hgb 11.1 L (12.0-15.0) d/dL Hct 35.9 L (37.2-46.3) % MCHC 30.9 L (32.0-37.0) d/dL MPV 9.1 L (9.5-12.2) FL Lymphocytes # (Manual) 6.00 H (0.90-5.00) X 10*3/uL Eosinophils # (Manual) 0.39 H (0.04-0.35) X 10*3/uL POC Glucose (mg/dL) 115 H (70-110) mg/dL Hemoglobin A1c (<=6.0) % Calcium 8.5 L (8.7-10.3) mg/dL 05/08/23 Range/Units 17:00 WBC (4.50-10.00) X 10*3/uL RBC (4.10-5.20) X 10*6/uL Hgb (12.0-15.0) d/dL Hct (37.2-46.3) % MCHC (32.0-37.0) d/dL MPV (9.5-12.2) FL Lymphocytes # (Manual) (0.90-5.00) X 10*3/uL Eosinophils # (Manual) (0.04-0.35) X 10*3/uL POC Glucose (mg/dL) 132 H (70-110) mg/dL Hemoglobin A1c (<=6.0) % Calcium (8.7-10.3) mg/dL Microbiology - Last 24 Hours (Table) 05/06/23 17:21 Blood Culture - Preliminary Blood 05/06/23 13:35 Gram Stain - Preliminary Ankle - Left Wound Culture - Preliminary 05/06/23 13:35 Gram Stain - Preliminary Ankle - Left Wound Culture - Preliminary Presumptive Staph aureus Assessment and Plan (1) Osteolysis, left ankle and foot Current Visit: Yes Status: Acute Code(s): M89.572 - OSTEOLYSIS, LEFT ANKLE AND FOOT SNOMED Code(s): 341498788 Plan: 1patient present to hospital with the left lateral ankle purulent drainage in this patient who do have history of ankle fracture s/p ORIF now with concern for a deep infection in this patient s/p I&D and removal of the plate and screw we will need to cover for the resistant gram-positive to the likely pathogen as the patient has failed outpatient oral Keflex therapy 2blood cultures are currently pending, patient did have a sed rate of 43 CRP of 2.3. Local cultures growing staph aureus with sensitivity pending 3continue the patient on vancomycin and cefepime , with discharge antibiotics on the basis of final culture will order PICC line Questions and concerns were answered Dictation was produced using [employer] dictation software. please excuse any grammatical, word or spelling errors. Time with Patient: Less than 30
[2023-05-08 20:58] LABS: Glucose,Whole Blood 171 mg/dL (70-110)
--- NOTE | 2023-05-09 03:20 | PN ---
PROGRESS NOTE DATE OF SERVICE: 05/08/2023 HISTORY: This is a 63-year-old woman who was admitted after surgery of her left ankle, is improving significantly. No chest pain. No palpitations. No fever. OBJECTIVE: VITAL SIGNS: Pulse is 73, blood pressure 130/65, respirations 18. CHEST: Clear to auscultation. CARDIOVASCULAR: S1, S2. ABDOMEN: Soft. NERVOUS SYSTEM: Nonfocal. LABORATORY DATA: WBC 13.05. The rest of the labs are noted. ASSESSMENT: 1. Status post irrigation and debridement and drainage of the left lateral ankle for deep infection of the ankle and retained hardware. 2. Diabetes mellitus, type 2 fluctuating with hypoglycemia, better controlled now. 3. Atrial fibrillation. 4. Hypertension. 5. Hyperlipidemia. 6. Multiple medical issues. RECOMMENDATIONS: Recommend to continue current management and continue symptomatic treatment. Otherwise, I would recommend repeat labs closely. Follow up with Orthopedic Surgery. Continue with cefepime. Cultures showing presumptive Staph aureus from the wound culture. Further recommendations to follow. MMODL / IJN: [id number] /
[2023-05-09] MEDS: HYDROcodone/APAP 7.5-325MG 1 EACH TAB PO PRN ×3 (03:50→17:10)
[2023-05-09] MEDS: LEVOTHYROXINE 88 MCG TAB PO SCH (05:52)
[2023-05-09 07:14] LABS: Glucose,Whole Blood 173 mg/dL (70-110)
--- NOTE | 2023-05-09 08:34 | P.PN ---
Subjective Progress Note Date: 05/09/23 Principal diagnosis: Deep infection left lateral ankle with retained hardware Patient was seen at bedside this morning with cam walker boot present to the left lower extremity. Knee scooter present at bedside. Patient says she has urinated since surgery. Patient says she has not had bowel movement yet, however, patient says she has been passing gas. Patient denies numbness/ti ngling down the foot. Patient denies chest pain, fever, shortness of breath, nausea, vomiting, change in vision, loss of bowel/bladder control. Objective - Vital Signs Vital signs: Vital Signs Temp 98.4 F 05/09/23 01:30 Pulse 77 05/09/23 01:30 Resp 18 05/09/23 01:30 BP 122/72 05/09/23 01:30 Pulse Ox 94 L 05/09/23 01:30 FiO2 Intake & Output 05/08/23 05/09/23 05/09/23 18:59 06:59 18:59 Other: Voiding Method Toilet # Voids 1 9 - Exam Left ankle: Cam Walker boot present to the left lower extremity at this time. Knee scooter is present next to patient at bedside. DP pulse intact bilaterally. Cap refill under 3 seconds in digits upper extremities.. There is minimal soft tissue swelling and ecchymosis surrounding the medial and lateral aspects of the incision. Calf is soft, no tenderness with palpation. Dorsi and plantarflexion is limited in the left ankle. EHL, FHL are intact. Sensory exam to light touch throughout the extremity is intact, dorsal pedis pulses 2+. - Labs CBC & Chem 7: 05/08/23 05:23 05/08/23 05:23 Labs: Abnormal Lab Results - Last 24 Hours (Table) 05/08/23 05/08/23 05/08/23 Range/Units : 05: 11:42 WBC 13.05 H (4.50-10.00) X 10*3/uL RBC 3.73 L (4.10-5.20) X 10*6/uL Hgb 11.1 L (12.0-15.0) d/dL Hct 35.9 L (37.2-46.3) % MCHC 30.9 L (32.0-37.0) d/dL MPV 9.1 L (9.5-12.2) FL Lymphocytes # (Manual) 6.00 H (0.90-5.00) X 10*3/uL Eosinophils # (Manual) 0.39 H (0.04-0.35) X 10*3/uL POC Glucose (mg/dL) 115 H (70-110) mg/dL Calcium 8.5 L (8.7-10.3) mg/dL 05/08/23 05/08/23 05/09/23 Range/Units 17:00 20:57 07:13 WBC (4.50-10.00) X 10*3/uL RBC (4.10-5.20) X 10*6/uL Hgb (12.0-15.0) d/dL Hct (37.2-46.3) % MCHC (32.0-37.0) d/dL MPV (9.5-12.2) FL Lymphocytes # (Manual) (0.90-5.00) X 10*3/uL Eosinophils # (Manual) (0.04-0.35) X 10*3/uL POC Glucose (mg/dL) 132 H 171 H 173 H (70-110) mg/dL Calcium (8.7-10.3) mg/dL Microbiology - Last 24 Hours (Table) 05/06/23 13:35 Anaerobic Culture - Preliminary Ankle - Left 05/06/23 13:35 Anaerobic Culture - Preliminary Ankle - Left 05/06/23 13:35 Gram Stain - Final Ankle - Left Wound Culture - Final Staphylococcus aureus 05/06/23 13:35 Gram Stain - Preliminary Ankle - Left Wound Culture - Preliminary 05/06/23 17:21 Blood Culture - Preliminary Blood Assessment and Plan Assessment: Deep infection left lateral ankle with retained hardware -Postoperative day 3 status post Irrigation and debridement/incision and d rainage left lateral ankle with plate/screw removal Plan: 1. Deep infection left lateral ankle with retained hardware - surgery performed 05/06/2023 - Irrigation and debridement/incision and drainage left lateral ankle with plate/screw removal. Cam Walker boot present to LLE and knee scooter with patient at bedside. Patient to be nonweightbearing left lower extr emity. Pain medication as needed. Medicine and infectious disease are following with antibiotics. final cultures showing staph. ID ordered for PICC line placement. Awaiting PICC line to be placed. Patient stable from orthopedic standpoint for discharge home. We will plan for discharge home today. 2. Appreciate medical management and ID management 3. Pain management - [place]; gabapentin 4. GI prophylaxis - senna 5. DVT prophylaxis - aspirin 6. PT/OT - nonweightbearing left lower extremity 7. Encourage incentive spirometer use 8. Discharge planning - Discharge home today pending PICC line placement Time with Patient: Less than 30
[2023-05-09 08:52] VITALS: TEMP 97.6
[2023-05-09] MEDS: INSULIN ASPART (NovoLOG) 100 UNIT/ML VIAL SQ SCH ×2 (09:10→13:02)
[2023-05-09] MEDS: SPIRONOLACTONE 25 MG TAB PO SCH (09:10)
[2023-05-09] MEDS: GABAPENTIN 300 MG CAP PO SCH ×2 (09:10→17:10)
[2023-05-09] MEDS: carvediloL 12.5 MG TAB PO SCH (09:10)
[2023-05-09] MEDS: ATORVASTATIN 20 MG TAB PO SCH (09:10)
[2023-05-09] MEDS: ASPIRIN 325 MG TAB PO SCH (09:10)
[2023-05-09] MEDS: CEFEPIME 2 GM in SODIUM CHLORIDE 0.9% 100 ML IVPB SCH (09:30)
[2023-05-09 12:12] LABS: Glucose,Whole Blood 139 mg/dL (70-110)
[2023-05-09] MEDS ORDERED: VANCOMYCIN TROUGH DUE 1 EACH MISC MISCELLANE ONE (13:00)
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
[2023-05-09 13:06] LABS: African American GFR (CKD) >90 (>60 ml/min/1.73 sqM); Non-African American GFR(CKD) 85 (>60 ml/min/1.73 sqM)
[2023-05-09 13:14] VITALS: BP 125/67; PULSE 64
[2023-05-09] MEDS ORDERED: LIDOCAINE 1% INJ 10MG/ML (20 ML MDV) ONE (13:50)
[2023-05-09] MEDS ORDERED: LIDOCAINE 1% INJ 10MG/ML (5 ML VIAL-PF) SQ ONE (14:06)
[2023-05-09 14:42] LABS: BUN/Creat Ratio 17.12 Ratio (12.00-20.00); Blood Urea Nitrogen 13.7 mg/dL (9.0-27.0); Calcium 9.2 mg/dL (8.7-10.3); Carbon Dioxide 23.3 mmol/L (21.6-31.8); Chloride 105 mmol/L (96-109); Glucose 131 mg/dL (70-110); Potassium 5.1 mmol/L (3.5-5.5); Sodium 137 mmol/L (135-145)
--- NOTE | 2023-05-09 14:44 | IR ---
PICC LINE PLACEMENT: HISTORY: Infection requiring long-term antibiotic therapy PROCEDURE: Ultrasound and fluoroscopic guidance of PICC line placement. COMPLICATIONS: None ANESTHESIA: 1. 1% Lidocaine locally. FINDINGS/TECHNIQUE: The procedure was explained to the patient. The risks, complications, benefits and alternatives were discussed and any questions were answered. Informed consent was obtained. The patient was placed supine on the fluoroscopic table and prepped and draped in the usual sterile fash ion. Utilizing a 21 gauge needle and sonographic and fluoroscopic guidance, access in the left basi lic vein was achieved and there is placement of a 0.018 guidewire. The vein is patent. A 4-F sheath was placed over the guidewire. The guidewire and dilator were removed and a 4-F. PICC line was plac ed through the sheath with the tip at the level of the SVC. The sheath was removed, the catheter was flushed and sutured into position. The patient was stable throughout the procedure and remained sta ble upon discharge from the Department of Radiology. The vein puncture was patent under ultrasound. A montez scale image was obtained to document patency of the vein punctured. All elements of the maximal barrier technique were utilized. FLUOROSCOPY TIME: DAP 0.227Gy cm2 IMPRESSION: Successful PICC line placement under ultrasound and fluoroscopic guidance.
[2023-05-09 14:59] LABS: Basophils # (A) 0.05 X 10*3/uL (0.00-0.10); Basophils % (A) 0.4 %; Eosinophils # (A) 0.37 X 10*3/uL (0.04-0.35); Eosinophils % (A) 2.9 %; HCT 37.4 % (37.2-46.3); HGB 11.4 d/dL (12.0-15.0); Lymphocytes # (A) 3.64 X 10*3/uL (0.90-5.00); Lymphocytes % (A) 28.8 %; MCH 29.6 pg (27.0-32.0); MCHC 30.5 d/dL (32.0-37.0); MCV 97.1 FL (80.0-97.0); Mean Platelet Volume 9.1 FL (9.5-12.2); Monocytes # (A) 0.84 X 10*3/uL (0.20-1.00); Monocytes % (A) 6.6 %; NRBC Per 100 WBC 0 X 10*3/uL (0.00-0.01); Neutrophils # (A) 7.67 X 10*3/uL (1.80-7.70); Neutrophils % (A) 60.7 %; Platelet Count 381 X 10*3/uL (140-440); RBC 3.85 X 10*6/uL (4.10-5.20); RDW 13.6 % (11.5-14.5); WBC 12.65 X 10*3/uL (4.50-10.00)
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
== END 2023-05-09 17:20 | disposition home health service (06) ==
LOC: OR 10:51 → 5NMEDONC 15:54 → OR 05-09 17:20
PROVIDERS: ATTEND Orthopaedic Surgery
DX: T84.69XA Infection and inflammatory reaction due to internal fixation device of other site, initial encounter (principal); I48.19 Other persistent atrial fibrillation; E11.9 Type 2 diabetes mellitus without complications; E78.5 Hyperlipidemia, unspecified; I10 Essential (primary) hypertension; E07.9 Disorder of thyroid, unspecified; F17.200 Nicotine dependence, unspecified, uncomplicated; Z98.51 Tubal ligation status; Z90.49 Acquired absence of other specified parts of digestive tract; Z79.899 Other long term (current) drug therapy
CPT/HCPCS: 20680; 97161; 36573; 80048; 85652; 82565 ×3; 85025 ×2; 80202; 86140; 87040; 87070; 87205; 87075; 87077; 87186; 83036 ×2; C1751; C1769 ×2; J2250; J3370 ×3; J0330; J1100; J0690 ×3; J2405; J2001 ×2; J0696; J0692 ×2; J3010; J2704; J1170; J2371